=== PATIENT | female | born 1945 | race Hispanic/Latino ===

== ENCOUNTER 2017-05-15 07:20 | Day surgery (SDC) | payer MEDICARE ==
[2015-03-01 08:18] VITALS: BMI 27.4
[2017-05-15] MEDS ORDERED: Propofol 10 mg/ml Inj (20 ML) ONE (08:24)
[2017-05-15] MEDS ORDERED: Sodium Chloride 0.9% 1,000 ML IV SCH (08:45)
[2017-05-15 09:32] VITALS: BP 147/76; PULSE 84; RESP 18; TEMP 97.5; O2SAT 99
== END 2017-05-15 10:49 | disposition home or self-care (01) ==
LOC: ENDO 07:20
PROVIDERS: ATTEND Specialist
DX: K25.9 Gastric ulcer, unspecified as acute or chronic, without hemorrhage or perforation (principal); K31.7 Polyp of stomach and duodenum; K29.50 Unspecified chronic gastritis without bleeding; C88.4 Extranodal marginal zone B-cell lymphoma of mucosa-associated lymphoid tissue [MALT-lymphoma]
CPT/HCPCS: 43239; 88305; 88342; J2704; J7040 ×2

== ENCOUNTER 2018-09-23 06:36 | Day surgery (SDC) | payer MEDICARE ==
[2018-09-14 14:00] VITALS: BMI 27.9
[2018-09-23 07:10] VITALS: TEMP 98
[2018-09-23] MEDS ORDERED: Propofol 10 mg/ml Inj (20 ML) ONE (08:08)
[2018-09-23] MEDS ORDERED: Sodium Chloride 0.9% 1,000 ML IV SCH (09:00)
[2018-09-23 10:05] VITALS: O2SAT 100
[2018-09-23 10:09] VITALS: BP 138/76; PULSE 80; RESP 16
== END 2018-09-23 10:32 | disposition home or self-care (01) ==
LOC: ENDO 06:36
PROVIDERS: ATTEND Specialist
DX: Z12.11 Encounter for screening for malignant neoplasm of colon (principal); C85.19 Unspecified B-cell lymphoma, extranodal and solid organ sites; K31.7 Polyp of stomach and duodenum; K44.9 Diaphragmatic hernia without obstruction or gangrene; K57.30 Diverticulosis of large intestine without perforation or abscess without bleeding; K64.8 Other hemorrhoids; Z85.72 Personal history of non-Hodgkin lymphomas
CPT/HCPCS: 43239; 45380; 88305; 88342; J2704; J7030; J7040

== ENCOUNTER 2018-11-09 06:14 | Outpatient (CLI) | payer MEDICARE | END 2018-11-09 06:15 | disposition home or self-care (01) | LOC: PET-BROA 06:14 | DX: C88.4 Extranodal marginal zone B-cell lymphoma of mucosa-associated lymphoid tissue [MALT-lymphoma] (principal) ==